=== PATIENT | male | born 1990 | race Caucasian/White ===

== ENCOUNTER 2017-02-08 20:43 | Emergency (ER) | payer MEDICAID ==
[~2017-02-08] VITALS: Ht 175.3 cm; Wt 81.5 kg
[2017-02-08] MEDS ORDERED: LEVOFLOXACIN 250 MG TABLET PO ONE (22:30)
[2017-02-08] MEDS ORDERED: KETOROLAC TROMETHAMINE 30 MG/ML VIAL IVP ONE (22:30)
[2017-02-08] MEDS ORDERED: SODIUM CHLORIDE 0.9% 1,000 ML IV ONE (22:30)
[2017-02-08 23:00] VITALS: BP 128/77
== END 2017-02-08 23:37 | disposition home or self-care (01) ==
LOC: EMS 20:47
DX: J18.9 Pneumonia, unspecified organism (principal)
CPT/HCPCS: 71010; 96361; 96374; 99284; J1885; J7030

== ENCOUNTER 2019-06-02 21:54 | Emergency (ER) | payer SELFPAY ==
[~2019-06-02] VITALS: Ht 175.3 cm; Wt 86.4 kg
[2019-06-02] MEDS ORDERED: DiphenhydrAMINE HCL 50 MG/ML VIAL IVP STA (23:45)
[2019-06-02] MEDS ORDERED: METOCLOPRAMIDE HCL 5 MG/ML 2 ML VIAL IVP ONE (23:45)
[2019-06-02] MEDS ORDERED: SODIUM CHLORIDE 0.9% 1,000 ML IV ONE (23:45)
[2019-06-02] MEDS ORDERED: KETOROLAC TROMETHAMINE 30 MG/ML VIAL IVP ONE (23:45)
[2019-06-02] MEDS ORDERED: ACETAMINOPHEN 500 MG TABLET PO ONE (23:45)
[2019-06-03 00:44] LABS: INFLUENZA TYPE A POSITIVE FOR TYPE A (NEGATIVE); INFLUENZA TYPE B NEGATIVE FOR TYPE B (NEGATIVE)
[2019-06-03] MEDS ORDERED: OSELTAMIVIR PHOSPHATE 75 MG CAPSULE PO ONE (01:15)
[2019-06-03 01:23] VITALS: BP 108/62
== END 2019-06-03 01:51 | disposition home or self-care (01) ==
LOC: EMS 22:02
DX: J10.1 Influenza due to other identified influenza virus with other respiratory manifestations (principal)
CPT/HCPCS: 87804; 93005; 96361; 96374; 96375; 99284; J1200; J1885; J2765; J7030